=== PATIENT | male | born 1955 | race Caucasian/White ===

== ENCOUNTER → 2020-12-01 00:12 | Outpatient (CLI) | payer MEDICARE, SELFPAY ==
[2020-12-01 18:59] LABS: SARS-CoV-2 RNA PCR Negative
== END ==
PROVIDERS: PCP Family Medicine; Visit Provider Internal Medicine Gastroenterology
DX: Z01.812 Encounter for preprocedural laboratory examination (principal); Z20.822 Contact with and (suspected) exposure to COVID-19
CPT/HCPCS: C9803; U0003; U0005

== ENCOUNTER 2020-12-04 01:00 | Day surgery (SDC) | payer MEDICARE, SELFPAY ==
[2020-11-20 14:27] VITALS: BMI 34.4
[2020-12-04 08:31] VITALS: BP 141/80; PULSE 71; RESP 16; TEMP 36.3; O2SAT 98; BMI 35.4
[2020-12-04] MEDS: LACTATED RINGERS 1,000 ML 150 ML IV CONT (08:40)
--- NOTE | 2020-12-04 08:45 | PM.HPGS ---
History of Present Illness History of Present Illness Consent: Risks, benefits, and alternatives have been discussed and questions answered. Patient agrees to proceed with procedure. Chief complaint: neoplasm screening Narrative: Richard Clark is a 65 year old male referred for colon cancer screening Review of Systems Review of Systems: All systems reviewed & are unremarkable except as noted in HPI and below [facility] Social History Social History Living arrangements: with family Gender identity (if verbalized by the patient): Male Spiritual care concerns: No Meds Home Medications and Allergies Home Medications Medication Instructions Recorded Confirmed Type carvedilol 6.25 mg PO BID 11/20/20 12/04/20 History febuxostat 40 mg PO DAILY 11/20/20 12/04/20 History levothyroxine 37.5 mcg PO DAILY 11/20/20 12/04/20 History lisinopril-hydrochlorothiazide 10 - 12.5 tablet PO DAILY 11/20/20 12/04/20 History Allergies Allergy/AdvReac Type Severity Reaction Status Date / Time apricot Allergy Unknown HIVES Verified 12/04/20 08:30 No Known Drug Allergies Allergy Unknown NONE Verified 12/04/20 08:30 Vital Signs Vital Signs - 24 hr 12/04/20 08:31 Temperature 36.3 C L Pulse Rate 71 Respiratory Rate 16 Blood Pressure 141/80 H Pulse Oximetry 98 Exam Resp: Auscultation: clear to auscultation bilaterally Cardio: Rate: regular rate Rhythm: regular rhythm GI: GI Palp: Yes Soft to palpation and No Tenderness to palpation present (GI) Assessment and Plan Assessment and plan (1) Colon cancer screening: Code(s): Z12.11 - Encounter for screening for malignant neoplasm of colon Status: Acute Assessment and Plan: Colonoscopy with possible biopsy or polypectomy or cautery or injection of substances.
--- NOTE | 2020-12-04 09:18 | WPDANESEPPF ---
Anes - Initial Pre Proc Eval Procedure: Operation Date: 12/04/20 09:30 Proposed Procedures p Screening Colonoscopy - Chito Botello MD Date/Time: 12/04/20 09:18 Surgeon: Chito Botello MD Pre Op Diagnosis: neoplasm screening Patient Data Age: 65 Gender: M Height: 5 ft 10 in Weight: 111.8 kg Last Vital Signs Temp 97.3 F L 12/04/20 08:31 Pulse 71 12/04/20 08:31 Resp 16 12/04/20 08:31 BP 141/80 H 12/04/20 08:31 Pulse Ox 98 12/04/20 08:31 Allergies Allergy/AdvReac Type Severity Reaction Status Date / Time apricot Allergy Unknown HIVES Verified 12/04/20 08:30 No Known Drug Allergies Allergy Unknown NONE Verified 12/04/20 08:30 Home Medications Medication Instructions Recorded Confirmed Type carvedilol 6.25 mg PO BID 11/20/20 12/04/20 History febuxostat 40 mg PO DAILY 11/20/20 12/04/20 History levothyroxine 37.5 mcg PO DAILY 11/20/20 12/04/20 History lisinopril-hydrochlorothiazide 10 - 12.5 tablet PO DAILY 11/20/20 12/04/20 History Patient hx anesthesia problems: none Family hx anesthesia problems: none [facility] Past Medical History Medical History (Updated 12/04/20 @ 09:19 by Devendra Lewis MD) Hypertension Hypothyroid Social History Social History Living arrangements: with family Gender identity (if verbalized by the patient): Male Spiritual care concerns: No Anes - Eval Final PreProcedure Day of Procedure 12/04/20 09:18 Patient weight: overweight Heart: regular rate and rhythm Lungs: clear to auscultation Airway: Mallampati scale class II Neurological: alert and oriented Last oral intake: >/= 8 hours ASA classification: II Emergent: no Anesthetic plan: proceed Anesthesia type and monitoring: general GIVS and standard monitoring Informed Consent: The patient's anesthetic plan and its attendant risks and benefits were discussed with the patient/family/POA. Questions were solicited and answers provided to the satisfaction of the patient/family/POA.
[2020-12-04 09:40] VITALS: BP 104/66; PULSE 65; RESP 16; O2SAT 94
[2020-12-04 09:50] VITALS: BP 117/68; PULSE 59; RESP 16; O2SAT 95
[2020-12-04 10:08] VITALS: BP 139/92; PULSE 62; RESP 14; O2SAT 98
== END 2020-12-04 10:34 | disposition home or self-care (01) ==
PROVIDERS: PCP Family Medicine; Visit Provider Internal Medicine Gastroenterology
PROC: 0DJD8ZZ Inspection of Lower Intestinal Tract, Via Natural or Artificial Opening Endoscopic (ICD-10-PCS; CPT 45378; principal; 2020-12-04 09:30)
DX: Z12.11 Encounter for screening for malignant neoplasm of colon (principal); K57.30 Diverticulosis of large intestine without perforation or abscess without bleeding
CPT/HCPCS: G0121; C9803; J2704; J7120; U0003; U0005

== ENCOUNTER 2021-10-29 09:31 | Outpatient (CLI) | payer MEDICARE, SELFPAY ==
--- NOTE | ~2021-10-29 | XR_ITS ---
EXAMINATION: XR hip RT min 2V DATE: 10/29/2021 10:10 INDICATION: Right hip pain. TECHNIQUE: 2 views of right hip were obtained. COMPARISON: CT abdomen and pelvis 08/22/2012 FINDINGS: Bone alignment is normal. No fracture. There is a mixed lytic and sclerotic pattern of supe rior right femoral head with collapse of the articular surface. There is severe right hip osteoarthri tis. IMPRESSION: 1. 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 Reviewed, dictated and finalized at location E. [employer]
== END 2021-10-29 09:32 | disposition home or self-care (01) ==
LOC: ANHIMG 09:49
PROVIDERS: PCP Family Medicine
DX: M87.851 Other osteonecrosis, right femur (principal)
CPT/HCPCS: 73502

== ENCOUNTER 2022-05-21 09:45 | Outpatient (CLI) | payer MEDICARE, SELFPAY ==
--- NOTE | ~2022-05-21 | CT_ITS ---
EXAMINATION: CT hip RT wo con DATE: 05/21/2022 10:09 INDICATION: Right hip osteoarthritis. TECHNIQUE: High resolution computed tomography (CT) of the right hip was performed without intravenou s contrast. Additional sagittal and coronal reconstructions were performed. Automated exposure contro l and iterative reconstruction technique were employed. The dose-length product was 442.49 mGy-cm. COMPARISON: None FINDINGS: Bone alignment is normal. No fracture. Large lytic lesion with thin sclerotic margins at the cephalad aspect of the right humeral head positioned centrally within the region of likely osteonecrosis roun ded inferiorly by curvilinear sclerosis. There is collapse of the overlying articular surface involvi ng a region measuring 4 cm AP and 2.5 cm medial to lateral. There is up to 3 mm maximal step off at t he margins of the depressed articular cortex. There is moderate severity cephalad predominant nonunif orm joint space narrowing at the right hip with moderate size marginal osteophytes about the femoral head and small marginal osteophytes and mild cystic changes along the rim of the right acetabulum. No right hip joint effusion. Surrounding soft tissues are unremarkable. No evident pathologically enlar ged right pelvic or inguinal lymphadenopathy. IMPRESSION: 1. Moderate secondary osteoarthritis at the right hip with chronic osteonecrosis at the right femoral head with collapse of a significant portion of the cephalad articular cortex. Reviewed, dictated and finalized at location A. IMPRESSION: 1. Moderate secondary osteoarthritis at the right hip with chronic osteonecrosi s at the right femoral head with collapse of a significant portion of the cepha lad articular cortex.
== END 2022-05-21 09:46 | disposition home or self-care (01) ==
PROVIDERS: PCP Family Medicine; Visit Provider Nurse Practitioner Adult Health
DX: M16.11 Unilateral primary osteoarthritis, right hip (principal)
CPT/HCPCS: 73700

== ENCOUNTER 2022-12-11 07:51 | Outpatient (CLI) | payer MEDICARE, SELFPAY ==
--- NOTE | 2022-12-11 09:13 | ECG_ITS ---
Measurements Intervals [place] Rate: 63 P: CO: 0 QRS: -65 QRSD: 102 T: 27 QT: 401 QTc: 412 Interpretive Statements SINUS RHYTHM BORDERLINE AV CONDUCTION DELAY LEFT ANTERIOR FASCICULAR BLOCK BASELINE ARTIFACT- I, II, III, AVL, V3-V6 ABNORMAL ECG NO PREVIOUS ECG AVAILABLE FOR COMPARISON Electronically Signed On 12-11-2022 12:00:06 CDT by Roberto Dorman D.O.
[2022-12-11 09:40] LABS: Appearance Urine Clear (Clear); Bilirubin Urine Negative (Negative); Blood Urine Negative (Negative); Color Urine Yellow (Yellow); Glucose Urine UA Negative (Negative); Ketones Urine Negative (Negative); Leukocyte Esterase Ur Negative LEU/UL (Negative); Nitrate Urine Negative (Negative); Protein Urine Negative (Negative); Specific Grav Ur 1.011 (1.001-1.035); Urobilinogen Urine 0.2 mg/dL (<2.0); pH Urine 5.5 (5.0-9.0)
[2022-12-11 09:50] LABS: Urine Cotinine NEGATIVE
[2022-12-11 09:51] LABS: Add Urine Microscopic? NO
[2022-12-11 09:54] LABS: INR 1.1; Prothrombin Time 13.4 Seconds (11.1-14.7)
[2022-12-11 09:55] LABS: Partial Thromboplastin Time 34.1 SECONDS (22.3-36.8)
== END 2022-12-11 07:52 | disposition home or self-care (01) ==
LOC: ANHSURGERY 07:55
PROVIDERS: PCP Family Medicine; Visit Provider Orthopaedic Surgery
DX: M16.11 Unilateral primary osteoarthritis, right hip (principal); Z01.818 Encounter for other preprocedural examination; I45.9 Conduction disorder, unspecified; I44.4 Left anterior fascicular block
CPT/HCPCS: 80307; 81003; 85610; 85730; 87081; 93005

== ENCOUNTER 2022-12-26 14:02 | Observation (INO) | payer MEDICARE, SELFPAY ==
[2022-12-11 08:00] VITALS: BMI 35.3
--- NOTE | 2022-12-11 08:35 | PC.NURSE ---
Report to the Outpatient Waiting Room, entrance under the green pavilion located off [facility], at time _0900 on date __12/25/22 . Planned Procedure Time: __1100 . Time changes happen often and if your time is changed the preop area will call you the afternoon before. - You and your visitor will be asked to self-screen and do not enter if you have any COVID symptoms. - Only one visitor is requested with a max of two and NO children visitors are allowed at this time. - The patient visitor may be requested to leave or wait in car when not with patient due to distancing restrictions. - A mask is optional within the hospital at this time. Patients may have clear liquids (water, carbonated beverages, clear teas, apple juice) until 3 hours prior to surgery with a maximum of 20 ounces. - No food from midnight until time of surgery - Infants may have breast milk until 4 hours before surgery, formula 6 hours prior to surgery. - Children will be allowed to drink immediately following surgery. If applicable, please bring a bottle or sippy cup to assist with drinking. Juice, water, soda, and popsicles are readily available. For infants on formula, please bring formula the day of surgery. Pacifiers are allowed. Take the following medications with a SIP of water the morning of surgery: ___CARVEDILOL,LEVOTHYROXINE, DO NOT STOP ANY OF YOUR OTHER PRESCRIPTION MEDICATIONS PRIOR TO SURGERY ?EXCEPT THE FOLLOWING Medications to discontinue per physician _ASPIRIN AND ALEVE PER DR NUNEZ. ALL VITAMINS/SUPPLEMENTS 3 DAYS PRE OP. LAST DOSE 12/21/22___ Please no make-up, nail serbian, hairspray, perfume, deodorant, or body powder the day of surgery. No jewelry (including any body piercings) or valuables the day of surgery, leave them at home. Please take a shower or bath the night before, or the morning of, surgery with an antibacterial soap. Wear comfortable, loose fitting clothing. Children are encouraged to wear pajamas. - Jewelry must be removed prior to entering the operating room. Rings and piercings that are not removed may be cut off. - The hospital will not accept responsibility for valuables. - Please leave all valuables, including medications, at home the day of surgery. If you are going home after surgery, a licensed regional otr company driver must drive you home. - NO public transportation without another adult if you receive anesthesia. - We recommend that an adult stay with you for 24 hours following discharge. - We also recommend that you do not drive, make important decision, drink alcoholic beverages, or take any drugs that were not prescribed by your health care provider for at least 24 hours after your discharge time. Follow any additional instructions given to you from your surgeon. If you or anyone in your household have experienced Covid symptoms in the past week, please notify your surgeon or the nurse liaison at the phone number below for possible testing. VERBAL AND WRITTEN instructions given to _PATIENT and asked if any additional questions and then verbalized understanding. Patient advised to call surgeon office or pre surgery nurse liaison [phone] if any additional questions.
[2022-12-11 08:58] VITALS: BP 137/79; PULSE 60; RESP 18; TEMP 36.6; O2SAT 97
--- NOTE | 2022-12-24 13:08 | WPDANESEPPF ---
Anes - Initial Pre Proc Eval Procedure: Operation Date: 12/25/22 11:00 Proposed Procedures p Right Total Hip Arthroplasty - Edis Sahni MD Date/Time: 12/24/22 13:08 Surgeon: Edis Sahni MD Pre Op Diagnosis: right hip djd Patient Data Age: 67 Gender: M Height: 1.78 m Weight: 111.7 kg Last Vital Signs Temp 36.6 C 12/11/22 08:58 Pulse 60 12/11/22 08:58 Resp 18 12/11/22 08:58 BP 137/79 12/11/22 08:58 Pulse Ox 97 12/11/22 08:58 O2 Del Method Room Air 12/11/22 08:58 Allergies Allergy/AdvReac Type Severity Reaction Status Date / Time apricot Allergy Unknown HIVES Verified 12/25/22 09:17 Home Medications Medication Instructions Recorded Confirmed Type carvedilol 6.25 mg tablet 6.25 mg PO BID 11/20/20 12/25/22 History lisinopril 10 10 - 12.5 tablet PO DAILY 11/20/20 12/25/22 History mg-hydrochlorothiazide 12.5 mg tablet ascorbic acid (vitamin C) 1,000 mg 1 g PO DAILY 09/30/22 12/25/22 History capsule cholecalciferol (vitamin D3) 125 125 mcg PO DAILY 09/30/22 12/25/22 History mcg (5,000 unit) capsule omega-3 fatty acids 1,000 mg 1,000 mg PO DAILY 09/30/22 12/25/22 History capsule allopurinol 100 mg tablet 100 mg PO DAILY 12/11/22 12/25/22 History aspirin 81 mg tablet 81 mg PO DAILY 12/11/22 12/25/22 History chlorhexidine gluconate 4 % 1 applic topical ONCE #237 mL 12/11/22 12/25/22 Rx topical liquid (Hibiclens) ferrous sulfate 27 mg iron tablet 27 mg PO QMWF 12/11/22 12/25/22 History glucosamine 750 vg-yeooawylxxy-bpt 1 tablet PO BID 12/11/22 12/25/22 History no1 644 mg-C 30 mg-[place] 1 mg tablet (Osteo Bi-Flex Triple Strength) levothyroxine 50 mcg tablet 50 mcg PO DAILY 12/11/22 12/25/22 History multivit,Ca,min-iron 8 mg-folic 1 tablet PO DAILY 12/11/22 12/25/22 History acid 200 mcg-lycopene 600 mcg tablet (Centrum Men) naproxen sodium 220 mg capsule 220 mg PO Q12H PRN Pain 12/11/22 12/25/22 History (Aleve) prasterone (dhea) 25 mg tablet 25 mg PO DAILY 12/11/22 12/25/22 History (DHEA) ECG: Date of Service: 12/11/22 Procedure(s): CA 12 lead EKG Accession Number(s): [id number] cc: ~ ? Measurements Intervals? [place]? Rate: ? 63 ? P:? MT: ? 0? QRS:? -65 QRSD: ? 102? T:? 27 QT: ? 401? QTc:? 412? Interpretive Statements SINUS RHYTHM BORDERLINE AV CONDUCTION DELAY LEFT ANTERIOR FASCICULAR BLOCK BASELINE ARTIFACT- I, II, III, AVL, V3-V6 ABNORMAL ECG NO PREVIOUS ECG AVAILABLE FOR COMPARISON Electronically Signed On 12-11-2022 12:00:06 CDT by Roberto Dorman D.O. Patient hx anesthesia problems: none Family hx anesthesia problems: none Results Review: All pre-operative results and documents have been reviewed as part of the pre-operative evaluation. [facility] Past Medical History Medical History (Updated 12/13/22 @ 10:59 by JORGE LUIS Cross) HTN (hypertension) Hypertension Hypothyroid Low testosterone Social History Social History Smoking status: Never smoker Additional smoking assessment comments: DENIES ANY FORM OF TOBACCO USE Living arrangements: with family Gender identity (if verbalized by the patient): Male Spiritual care concerns: No Anes - Eval Final PreProcedure Day of Procedure 12/24/22 13:08 Patient weight: obese Heart: regular rate and rhythm Lungs: clear to auscultation Airway: Mallampati scale class II Neurological: alert and oriented Last oral intake: >/= 8 hours ASA classification: III Emergent: no Anesthetic plan: proceed Anesthesia type and monitoring: general ETT and standard monitoring Results Review: All pre-operative results and docum
[2022-12-25] VITALS (14 sets, daily range): BP systolic 109–132; BP diastolic 63–71; PULSE 59–70; RESP 12–18; TEMP 36.1–36.7; O2SAT 93–100
--- NOTE | 2022-12-25 07:15 | WPDHPUPDATE1 ---
History and Physical Update Update Date/Time: 12/25/22 07:15 History and Physical has been reviewed, including an updated exam of the patient. There are NO changes in the patient's condition. Risks, benefits, and alternatives have been discussed and questions answered. Patient agrees to proceed with procedure.
[2022-12-25] MEDS: ACETAMINOPHEN 500 MG TABLET 1000 MG PO (09:26)
[2022-12-25] MEDS: LACTATED RINGERS 1,000 ML 30 ML IV CONT ×2 (10:30→16:35)
[2022-12-25] MEDS: TRANEXAMIC ACID 1,000MG/ISO100 1,000 MG/100 ML BAG 200 MG IVPB (10:35)
--- NOTE | 2022-12-25 11:09 | SUR.PREOP ---
1109- UPDATED PT THAT DR. NUNEZ IS RUNNING ABOUT A HOUR BEHIND.
[2022-12-25] MEDS: ceFAZolin 2 GM/D5W 50 ML 2 GM/50 ML BAG IVPB ×2 (13:09→20:16)
[2022-12-25] MEDS: TRANEXAMIC ACID 1,000 MG/10 ML AMPUL 1000 MG IV PUSH (15:37)
--- NOTE | 2022-12-25 16:38 | W.PM.PROC2 ---
Procedure Note - Detailed Date of Procedure 12/25/22 Pre-op Diagnosis right hip djd Post-op Diagnosis Same Procedure Performed R JAYME Surgeon Edis Sahni MD Anesthesia General Description of Procedure THE PATIENT WAS TAKEN TO THE OPERATING ROOM IN STABLE CONDITION AND WAS PLACED IN THE LATERAL DECUBITUS AND THE RIGHT LOWER EXTREMITY WAS PREPPED AND DRAPED IN THE STERILE FASHION. INCISION WAS MADE IN THE POSTERIOR LATERAL SIDE OF THE HIP, DOWN TO THE FASCIA LAYER. THE FASCIA WAS INCISED. THE HIP WAS EXPOSED. THE SHORT EXTERNAL ROTATORS WERE EXPOSED. THE SCIATIC NERVE WAS IDENTIFIED. INCISION WAS MADE THROUGH THE SHORT EXTERNAL ROTATORS AND THE CAPSULE OF THE HIP JOINT. THE HIP WAS DISLOCATED. AN OSTEOTOMY WAS MADE TO THE FEMORAL NECK ABOUT 1 CM PROXIMAL TO THE LESSER TROCHANTER. THE ACETABULUM WAS EXPOSED. THERE WAS SEVERE DJD SEEN. BEGINNING WITH A 47 REAMER THE ACETABULUM WAS REAMED TO 53 MM. A 53 MM TRIAL WAS PLACED IN 35 DEG OF ABDUCTION AND ANTEVERSION WAS IN ALIGNMENT WITH THE TRANS ACETABULAR LIGAMENT. THE FIT WAS EXCELLENT. THE TRIAL WAS REMOVED. A 54 MM BIOMET G7 COMPONENT WAS THEN TAPPED IN TO PLACE IN 35 DEG OF ABDUCTION AND ANTEVERSION IN ALIGNMENT WITH THE TRANSVERSE ACETABULAR LIGAMENT. THE FIT WAS EXCELLENT. THE ACETABULAR LINER WAS PLACED AND CHECKED FOR STABILITY. NEXT THE FEMUR WAS PREPARED WITH INITIAL CANAL FINDER THEN SEQUENTIAL BROACHING WITH A TAPERLOC HIP SYSTEM, UNTIL A 12 BROACH FIT WELL IN 15 OF ANTEVERSION. A +6 HIGH OFFSET NECK WITH 36 MM HEAD TRIAL WAS PLACED. THE SHUCK TEST WAS EXCELLENT AND THE STABILITY IN FLEXION AND ROTATION WAS EXCELLENT. LEG LENGTHS WERE GROSSLY EQUAL. TRIALS WERE REMOVED. A BIOMET TAPERLOC 12 STEM WAS PLACED WITH A HIGH OFFSET NECK. THE FIT WAS EXCELLENT IN 15 DEG OF ANTEVERSION. A +6 CERAMIC 36 MM FEMORAL HEAD WAS PLACED. THE HIP WAS TRIALED AND THE STABILITY WAS EXCELLENT WERE THE LEG LENGTHS AND THE SHUCK TEST. THE WOUND WAS IRRIGATED WITH STERILE BETADINE AND WATER FOR 3 MIN. THEN WASHED AGAIN. THE SCIATIC NERVE WAS IDENTIFIED AGAIN. THE CAPSULE AND THE EXTERNAL ROTATORS WERE APPROXIMATED WITH NUMBER 1 VICRYL. THE FASCIA WITH No 2 QUIL AND THE SUB CUTANEOUS LAYER WITH 2-0 ABSORBABLE SUTURE AND A RUNNING 3-0 SUBCUTICULAR STITCH FOR THE SKIN. DERMABOND WAS PLACED AND STERILE DRESSING WAS APPLIED. PATIENT WAS PLACED BACK ON TO THE SUPINE POSITION AND WAS EXTUBATED Estimated Blood Loss -150.0 Complications No immediate complications Condition Stable Disposition PACU
[2022-12-25] MEDS: fentaNYL CITRATE INJ (*CRX) 100 MCG/2 ML VIAL 25 MCG IV PUSH ×4 (16:45→17:51)
--- NOTE | 2022-12-25 18:00 | PC.NURSE ---
This patient, Richard Clark, was admitted to 2 Medical Room 242-. Patient/family oriented to hospital policies and general routines including ID bracelet, bed and alarms, visiting hours, pain management, procedures, bathroom and other care routines, personal items, smoking policy, room service/diet, and visiting hours. Information on how to activate the Rapid Response Team has been discussed. Patient/Family are encouraged to report perceived risks to care and to ask questions if they do not understand what they are told or what they should do.
[2022-12-25] MEDS: DEXTROSE 5%/0.45% SOD CHL 1,000 ML 80 ML IV CONT (18:34)
[2022-12-25] MEDS: KETOROLAC 15 MG/ML VIAL (*BKC) IV PUSH (20:15)
[2022-12-25] MEDS: carvediloL 6.25 MG TABLET PO (20:15)
[2022-12-25] MEDS: SENNA/DOCUSATE SODIUM TABLET 2 TAB PO (20:16)
[2022-12-25] MEDS: FAMOTIDINE 20 MG TABLET PO (20:16)
[2022-12-26] VITALS (20 sets, daily range): BP systolic 99–135; BP diastolic 52–72; PULSE 72–98; RESP 14–16; TEMP 36.4–37.1; O2SAT 96–100
--- NOTE | ~2022-12-26 | XR_ITS ---
EXAM: XR hip RT 1V DATE: 12/25/2022 16:52 HISTORY: RT TOTAL HIP, POST- OP . COMPARISON: 09/26/2022. FINDINGS: Right total hip arthroplasty, in good position. No hardware fracture or abnormal perihilar hardware lucency. Normal mineralization. No fracture or dislocation. No lytic or blastic lesion. Join t spaces and physes are maintained. No erosion or periosteal change. Postsurgical changes in the soft tissues. IMPRESSION: Expected postsurgical changes, with no radiographic evidence of procedure or hardware rel ated complication. Reviewed, dictated and finalized at location K. IMPRESSION: Expected postsurgical changes, with no radiographic evidence of pro cedure or hardware related complication.
--- NOTE | ~2022-12-26 | US_ITS ---
EXAMINATION: US carotid duplex BI DATE: 12/27/2022 08:36 INDICATION: Syncope TECHNIQUE: Grayscale, color Doppler, and pulsed Doppler images of the cervical carotid arteries were obtained. The degree of vessel stenosis is placed in one of the following categories: normal, <50%, 5 0-69%, >=70% but less than near-occlusion, near-occlusion, or total occlusion. Note that percent sten osis relative to normal distal artery lumen diameter is indirectly measured from velocity measurement s as described by Garry, et al. Radiology 2003; 229:340-346. COMPARISON: None. FINDINGS: RIGHT: The right common carotid artery (CCA) peak systolic velocity (PSV) is 128 cm/s. The right internal ca rotid artery (ICA) PSV is 106 cm/s. The right ICA end-diastolic velocity (EDV) is 34 cm/s. The right ICA/CCA PSV ratio is 0.8. Grayscale and color Doppler images yield an estimate of <50% diameter reduc tion from plaque in the ICA. The external carotid artery (ECA) PSV is 117 cm/s. There is antegrade fl ow in the right vertebral artery. LEFT: The left CCA PSV is 173 cm/s. The left ICA PSV is 103 cm/s. The left ICA EDV is 33 cm/s. The left ICA /CCA PSV ratio is 0.6. Grayscale and color Doppler images yield an estimate of <50% diameter reductio n from plaque in the ICA. The ECA PSV is 138 cm/s. There is antegrade flow in the left vertebral devendra ry. IMPRESSION: 1. <50% stenosis in the right internal carotid artery. 2. <50% stenosis in the left internal carotid artery. Reviewed, dictated and finalized at location A.
--- NOTE | 2022-12-26 00:10 | PC.NURSE ---
Vitals obtained, assisted to the edge of the bed into sitting position, pt complains of dizziness, sat on the edge of the bed for a few minutes, pt reports dizziness is better, pt then stands up with walker in front, takes 2 small steps forward and then starts to lean back, able to sit him down on the edge of the bed, pt states I'm dizzy and his head slumps forward, he becomes verbally unresponsive, laid him onto his back, sternal rub with no response, agonal breathing, blueish colored face, rapid response team called at 0016, unable to palpate carotid pulse, agonal breathing continues, code blue called @ 0017, able to doppler femoral pulse, 0019 takes a deep breath and wakes up startled, vitals obtained and WNL, Kaitlyn OSPINA notified of events.
[2022-12-26 00:36] LABS: Hemoglobin 15.1 g/dL (14.0-18.0); Mean Corpuscular HGB Conc 35.1 g/dl (32-36); Mean Corpuscular Volume 85.5 fl (80-100); Mean Platelet Volume 9.6 fl (7.4-10.4); Platelet Count Result 295 k/mm3 (150-375); Red Blood Count 5.03 M/mm3 (4.6-6.20); Red Cell Distribution Width 12.8 % (11.5-14.5); White Blood Count 21.6 K/mm3 (4.5-10.0)
[2022-12-26] MEDS: SODIUM CHLORIDE 0.9% IV 1,000 ML 999 ML IV CONT (00:36)
[2022-12-26] MEDS: SODIUM CHLORIDE NASAL GEL 14.1 GM 1 APPLIC NASAL ×2 (00:49→19:43)
[2022-12-26 01:03] LABS: Anion Gap 11 mmol/L (8-16); Blood Urea Nitrogen 28 mg/dL (9-20); Calcium 8.4 mg/dL (8.4-10.2); Carbon Dioxide 22 mmol/L (22-30); Chloride 101 mmol/L (98-107); Estimated CRCL calculation 75 ml/min; Estimated Glomerular Filt Rate > 60; Glucose 174 mg/dL (65-110); Potassium 4.3 mmol/L (3.4-5.0); Sodium 134 mmol/L (137-145)
[2022-12-26] MEDS: KETOROLAC 15 MG/ML VIAL (*BKC) IV PUSH ×4 (02:35→19:40)
[2022-12-26] MEDS: ceFAZolin 2 GM/D5W 50 ML 2 GM/50 ML BAG IVPB ×2 (04:36→13:03)
[2022-12-26] MEDS: BENZOCAINE/MENTHOL (*BKC) 18 EA LOZENGE 1 LOZENGE PO (04:37)
[2022-12-26 05:27] LABS: Basophils Percent Auto 0.1 % (0.2-1.2); Hematocrit 39.2 % (42.0-52.0); Hemoglobin 13.3 g/dL (14.0-18.0); Immature Granulocyte Absolute 0.08 K/mm3 (0.00-0.031); Immature Granulocyte Percent A 0.6 % (0-0.5); Lymphocytes Absolute Auto 0.98 K/mm3 (0.9-3.2); Lymphocytes Percent Auto 7.1 % (18.3-44.2); Mean Corpuscular HGB Conc 33.9 g/dl (32-36); Mean Corpuscular Hemoglobin 29.8 pg (26-34); Mean Corpuscular Volume 87.9 fl (80-100); Mean Platelet Volume 9.9 fl (7.4-10.4); Monocytes Absolute Auto 1.1 K/mm3 (0.1-0.6); Monocytes Percent Auto 7.9 % (2.6-8.5); Neutrophils Absolute Auto 11.7 K/mm3 (1.3-6.7); Neutrophils Percent Auto 84.3 % (45.5-73.1); Platelet Count Result 236 k/mm3 (150-375); Red Blood Count 4.46 M/mm3 (4.6-6.20); Red Cell Distribution Width 12.8 % (11.5-14.5); White Blood Count 13.8 K/mm3 (4.5-10.0)
[2022-12-26 05:43] LABS: Anion Gap 8 mmol/L (8-16); Blood Urea Nitrogen 29 mg/dL (9-20); Calcium 8.1 mg/dL (8.4-10.2); Carbon Dioxide 25 mmol/L (22-30); Chloride 102 mmol/L (98-107); Estimated CRCL calculation 75 ml/min; Estimated Glomerular Filt Rate > 60; Glucose 143 mg/dL (65-110); Potassium 4.7 mmol/L (3.4-5.0); Sodium 135 mmol/L (137-145)
[2022-12-26] MEDS: LEVOTHYROXINE SODIUM 50 MCG TABLET PO (06:01)
[2022-12-26] MEDS: HYDROcodone/acetaminophen (*CRX) 7.5-325 MG TABLET 1 TAB PO (06:01)
[2022-12-26] MEDS: allopurinoL 100 MG TABLET PO (08:44)
[2022-12-26] MEDS: ASCORBIC ACID 500 MG TABLET 1000 MG PO (08:44)
[2022-12-26] MEDS: ASPIRIN 325 MG ENTERIC TABLET PO ×2 (08:45→19:43)
[2022-12-26] MEDS: SENNA/DOCUSATE SODIUM TABLET 2 TAB PO ×2 (08:46→16:49)
[2022-12-26] MEDS: CHOLECALCIFEROL 1,000 UNITS TABLET 5000 UNITS PO (08:46)
[2022-12-26] MEDS: FAMOTIDINE 20 MG TABLET PO ×2 (08:47→19:43)
[2022-12-26] MEDS: polyethylene glycoL 3350 17 GM POWD.PACK PO (08:48)
--- NOTE | 2022-12-26 09:34 | WPDANESPN ---
Anes - Prog Note Post-Op Date/Time: 12/26/22 09:34 Cardiovascular status: normal Respiratory status: normal Airway patency: baseline Mental status: baseline Post-Op hydration status: normal Vital Signs: Last Vital Signs Temp 36.8 C 12/26/22 05:19 Pulse 95 12/26/22 08:57 Resp 16 12/26/22 05:19 BP 99/72 L 12/26/22 08:57 Pulse Ox 100 12/26/22 05:19 O2 Del Method Room Air 12/26/22 00:16 O2 Flow Rate 3 12/25/22 20:00 Pain Score (VAS): 11/29 I/O: Intake & Output 12/25/22 12/26/22 12/26/22 23:59 07:59 15:59 Intake Total 850 2350 Output Total 200 Balance 850 2150 Laboratory Tests 12/26/22 04:52 12/26/22 04:52 12/25/22 12/26/22 12/26/22 10:33 00:30 00:30 WBC 21.6 H RBC 5.03 Hgb 15.1 Hct 43.0 MCV 85.5 MCH 30.0 MCHC 35.1 RDW 12.8 Plt Count 295 MPV 9.6 Immature Gran % (Auto) Neut % (Auto) Lymph % (Auto) Boyd % (Auto) Eos % (Auto) Baso % (Auto) Lymph # (Auto) Boyd # (Auto) Eos # (Auto) Baso # (Auto) Abs Immat Gran (auto) Absolute Neuts (auto) Absolute Nucleated RBC Nucleated RBC % Sodium 134 L Potassium 4.3 Chloride 101 Carbon Dioxide 22 Anion Gap 11 BUN 28 H Creatinine 1.00 Estim Creat Clear Calc 75 Estimated GFR > 60 Glucose 174 H Calcium 8.4 Blood Type O Negative Antibody Screen Negative 12/26/22 12/26/22 04:52 04:52 WBC 13.8 H RBC 4.46 L Hgb 13.3 L Hct 39.2 L MCV 87.9 MCH 29.8 MCHC 33.9 RDW 12.8 Plt Count 236 MPV 9.9 Immature Gran % (Auto) 0.6 H Neut % (Auto) 84.3 H Lymph % (Auto) 7.1 L Boyd % (Auto) 7.9 Eos % (Auto) 0.0 Baso % (Auto) 0.1 L Lymph # (Auto) 0.98 Boyd # (Auto) 1.1 H Eos # (Auto) 0.0 Baso # (Auto) 0.0 Abs Immat Gran (auto) 0.08 H Absolute Neuts (auto) 11.7 H Absolute Nucleated RBC 0.0 Nucleated RBC % 0.0 Sodium 135 L Potassium 4.7 Chloride 102 Carbon Dioxide 25 Anion Gap 8 BUN 29 H Creatinine 1.00 Estim Creat Clear Calc 75 Estimated GFR > 60 Glucose 143 H Calcium 8.1 L Blood Type Antibody Screen Post-procedural complaints: none Patient Feedback: Patient satisfied with anesthetic care.
[2022-12-26] MEDS: carvediloL 6.25 MG TABLET PO ×2 (11:56→19:43)
[2022-12-26] MEDS: hydroCHLOROthiazide 12.5 MG CAPSULE PO (11:57)
--- NOTE | 2022-12-26 12:17 | PM.PNORT ---
Progress Note: A&P Assessment and Plan (1) S/P total hip arthroplasty: Code(s): Z96.649 - Presence of unspecified artificial hip joint Status: Acute Assessment and Plan: POD #1: Right JAYME Continue PT/OT. WBAT. Walker. HIGH FALL RISK. Continue pain control. Ice hip. Protect skin. DVT prophylaxis with aspirin. SCDs. Incentive Spirometry Use reviewed. Monitor Dressing. Change prior to discharge. Bowel Regimen. Dispo: Home with Home Health pending progress with PT/OT and improvement in postoperative medical status. (2) Postoperative urinary retention: Code(s): N99.89 - Other postprocedural complications and disorders of genitourinary system; R33.8 - Other retention of urine Status: Acute Assessment and Plan: Patient reports difficulty with urinary retention overnight and then again today. Recommended bladder scan at this time. Nursing to update us with bladder scan results to determine straight catheterization vs. saldaña placement. (3) Postoperative hypotension: Code(s): I95.81 - Postprocedural hypotension Status: Acute Assessment and Plan: Patient had a rapid response called shortly after midnight. Patient had stood up for the first time post op and suffered from an episode of unresponsiveness. His BP remained stable during event. No fall per report. He quickly regained consciousness. Rapid Response team treated patient. HgB stable at 13.1 today. Some hypotension this AM. Dr. Sahni instructed nursing staff to hold patient's Lisinopril today. He has not yet participated in PT due to the incident. Okay to resume PT at this time. May consult medicine team to assist with medical care. (4) Nausea: Code(s): R11.0 - Nausea Status: Acute Assessment and Plan: Postoperative nausea. Decreased appetite. Zofran PRN. Subjective Subjective Date/Time Seen: 12/26/22 12:17 Post Op day: 1 Interval history: POD #1: Right JAYME Patient with complaints of nausea, decreased appetite. Unable to urinate this AM. Syncopal episode over night. Has not yet worked with PT. Review of Systems Review of Systems: All systems reviewed & are unremarkable except as noted in HPI and below Constitutional: Constitutional: Reports as per HPI Gastrointestinal: Gastrointestinal: Reports nausea Genitourinary: Genitourinary: Reports urinary hesitancy Musculoskeletal: Musculoskeletal: Reports as per HPI Exam Const: General: no acute distress and uncomfortable Resp: Effort & Inspection: normal respiratory effort Cardio: Rate: regular rate Rhythm: regular rhythm GI: Inspection: non-distended GI Palp: Yes Soft to palpation, No Tenderness to palpation present (GI) and No Guarding due to palpation present (GI) Skin: General skin exam: normal color Other: Incision right hip c/d/i. Surrounding tissue without redness/warmth. Mild swelling consistent with recent surgery. No drainage. Neuro: Cognition (Neuro): normal cognition Speech: normal speech Extrem: Right lower extremity: normal to inspection, normal capillary refill, hip/thigh Details: tenderness Location: of the hip (Thigh soft ) Location: laterally and anteriorly, swelling Location: at the hip, abnormal ROM (limited consistent with recent surgery ) Details: pain with active ROM during and pain with passive ROM during and other (Incision c/d/i. ); no deformity and no unusual warmth, knee Details: normal to inspection; no tenderness and no swelling, lower leg (Negative Adrian's Sign ) Details: normal to inspection and no edema; no tenderness, ankle (+ankle dorsiflexion/plantarflexion) Details: normal to inspection and no edema; no tenderness, no swelling and no ecchymosis and foot Details: normal capillary refill, toes with normal ROM, vascular exam Details: dorsalis pedis pulse present and motor-sensory exam Details: light-touch normal; no tenderness Objective Data Vital Signs Vital Signs: Vital Signs - 24 hr 0
[2022-12-26] MEDS: ONDANSETRON INJ 4 MG/2 ML VIAL IV PUSH (13:00)
--- NOTE | 2022-12-26 13:24 | PC.NURSE ---
On 12/26/22, the student, [Yakov Rodriguez], provided care and completed [facility] documentation on this patient. I have reviewed the student's documentation and agree with the findings.
[2022-12-26 15:33] LABS: Hematocrit 36.7 % (42.0-52.0); Hemoglobin 12.6 g/dL (14.0-18.0); Mean Corpuscular HGB Conc 34.3 g/dl (32-36); Mean Corpuscular Hemoglobin 29.6 pg (26-34); Mean Corpuscular Volume 86.4 fl (80-100); Mean Platelet Volume 9.6 fl (7.4-10.4); Platelet Count Result 253 k/mm3 (150-375); Red Blood Count 4.25 M/mm3 (4.6-6.20)
[2022-12-26 15:47] LABS: Anion Gap 9 mmol/L (8-16); Blood Urea Nitrogen 33 mg/dL (9-20); Calcium 8.1 mg/dL (8.4-10.2); Carbon Dioxide 22 mmol/L (22-30); Chloride 101 mmol/L (98-107); Estimated CRCL calculation 69 ml/min; Estimated Glomerular Filt Rate > 60; Glucose 120 mg/dL (65-110); Magnesium 1.8 mg/dL (1.6-2.3); Potassium 4.4 mmol/L (3.4-5.0); Sodium 132 mmol/L (137-145)
--- NOTE | 2022-12-26 17:29 | ECG_ITS ---
Measurements Intervals [place] Rate: 89 P: 37 MD: 224 QRS: -53 QRSD: 106 T: 42 QT: 359 QTc: 438 Interpretive Statements SINUS RHYTHM WITH FIRST DEGREE AV BLOCK LEFT ANTERIOR SUPERIOR HEMIBLOCK ABNORMAL ECG COMPARED TO ECG 12/11/2022 08:26:13 HEART RATE INCREASED NO OTHER SIGNIFICANT CHANGE Electronically Signed On 12-27-2022 7:45:48 CDT by Allan Valentin M.D.
--- NOTE | 2022-12-26 18:00 | WPDCN ---
Assessment and Plan Assessment and plan (1) Syncope: Code(s): R55 - Syncope and collapse Status: Acute Assessment and Plan: Most likely secondary to orthostatic hypotension. He felt dizzy when going from supine to sitting and he had a syncopal episode within 20 to 30 seconds of standing. Orthostatic vital signs were positive this evening. By history and labs he does look a bit dehydrated and he will be hydrated overnight. Antihypertensives on hold for now. He will be monitor on telemetry to rule cardiac dysrhythmia. EKG and echocardiogram have been ordered for further evaluation. (2) Acute blood loss anemia: Code(s): D62 - Acute posthemorrhagic anemia Status: Acute Assessment and Plan: Hemoglobin has dropped 2.5 g to 12.6 this afternoon. Repeat in a.m.. (3) Postoperative urinary retention: Code(s): N99.89 - Other postprocedural complications and disorders of genitourinary system; R33.8 - Other retention of urine Status: Acute Assessment and Plan: Patient catheterized a couple of times today but now seems be emptying his bladder. He does a history of nocturia and likely has an enlarged prostate and would benefit tamsulosin however will hold on that for now due to orthostatic hypotension. Continue p.r.n. bladder scan. (4) Hypertension: Code(s): I10 - Essential (primary) hypertension Status: Acute Assessment and Plan: Antihypertensives on hold due to orthostatic hypotension as above. (5) Hypothyroidism: Code(s): E03.9 - Hypothyroidism, unspecified Status: Acute Assessment and Plan: Continue levothyroxine and check TSH. Plan Thank you for allowing us to participate in this patient's care. Please do not hesitate to contact us with any questions. HPI Data of Consult Date/Time: 12/26/22 18:00 Requesting Physician: Edis Sahni MD Consult Narrative Reason for consult: Syncope. Narrative: This is a very pleasant 67-year-old male with hypertension, hypothyroidism, iron deficiency anemia, and degenerative joint disease whom the hospitalist service has been consulted following a syncopal episode which occurred just after midnight. He had an elective right total hip arthroplasty done yesterday and it looks like the surgery went without issue. Postoperatively he had some nausea and admits that he was unable to eat much yesterday. Just after midnight he had to use the restroom and when attack sat him up to the side of the bed the patient reported feeling a bit dizzy. He sat there for a minute or so before trying to stand up and within 20 or 30 seconds after standing he reported that he felt like he was going to pass out. He was sat back down in bed at which time his head slumped and he became unresponsive. Tech called a rapid response as the patient appeared to be having agonal respirations. Initially staff were unable to palpate a carotid pulse however he came to shortly thereafter. Blood pressures taken within 10 minutes thereafter were well within normal limits. This evening however he did have positive orthostatic vital signs in again he really has not had that great of oral intake. He did receive his beta-julián and thiazide diuretic today but not his RUTHY-inhibitor. At the time my evaluation I witnessed him ambulating to the restroom with a walker and the aid of a tech, and he did quite well with that and was not feeling lightheaded or dizzy. He was also able to void this evening and it is noted that he was having some difficulties the last 24 hours emptying his bladder and he had to be straight catheterized on a couple of occasions. He has not had chest pain, pleuritic pain, palpitations, or sensations of racing heart. No known history of cardiac disease or cardiac dysrhythmia. Pain is pretty well controlled, worse when out moving. Review of Systems Review of Systems: Twelve systems were reviewed. He has a history of syncope sever
--- NOTE | 2022-12-26 19:28 | PC.NURSE ---
On 12/26/22, the Licensed pending RN, Phoebe Arteaga, provided care and completed [facility] documentation on this patient. I have reviewed the License pending RN's documentation and agree with the findings.
[2022-12-26] MEDS: SODIUM CHLORIDE 0.9% IV 1,000 ML 100 ML IV CONT (22:48)
[2022-12-27] VITALS (11 sets, daily range): BP systolic 104–135; BP diastolic 54–84; PULSE 68–93; RESP 16–18; TEMP 36.6–37.1; O2SAT 97–100
[2022-12-27] MEDS: HYDROcodone/acetaminophen (*CRX) 7.5-325 MG TABLET 1 TAB PO ×2 (00:49→09:35)
[2022-12-27 06:00] LABS: Hematocrit 32.9 % (42.0-52.0); Hemoglobin 11.2 g/dL (14.0-18.0); Mean Corpuscular Volume 88.2 fl (80-100); Platelet Count Result 196 k/mm3 (150-375); Red Blood Count 3.73 M/mm3 (4.6-6.20); Red Cell Distribution Width 13.1 % (11.5-14.5); White Blood Count 6.2 K/mm3 (4.5-10.0)
[2022-12-27 06:06] LABS: Anion Gap 5 mmol/L (8-16); Blood Urea Nitrogen 26 mg/dL (9-20); Calcium 7.9 mg/dL (8.4-10.2); Carbon Dioxide 28 mmol/L (22-30); Chloride 104 mmol/L (98-107); Estimated CRCL calculation 78 ml/min; Estimated Glomerular Filt Rate > 60; Glucose 112 mg/dL (65-110); Magnesium 2.1 mg/dL (1.6-2.3); Potassium 4.2 mmol/L (3.4-5.0); Sodium 137 mmol/L (137-145)
[2022-12-27] MEDS: LEVOTHYROXINE SODIUM 50 MCG TABLET PO (07:45)
[2022-12-27] MEDS: ASPIRIN 325 MG ENTERIC TABLET PO (09:27)
[2022-12-27] MEDS: ASCORBIC ACID 500 MG TABLET 1000 MG PO (09:27)
[2022-12-27] MEDS: carvediloL 6.25 MG TABLET PO (09:27)
[2022-12-27] MEDS: allopurinoL 100 MG TABLET PO (09:27)
[2022-12-27] MEDS: CHOLECALCIFEROL 1,000 UNITS TABLET 5000 UNITS PO (09:28)
[2022-12-27] MEDS: FAMOTIDINE 20 MG TABLET PO (09:29)
[2022-12-27] MEDS: polyethylene glycoL 3350 17 GM POWD.PACK PO (09:33)
[2022-12-27] MEDS: SENNA/DOCUSATE SODIUM TABLET 2 TAB PO (09:33)
--- NOTE | 2022-12-27 09:57 | PM.PNORT ---
Progress Note: A&P Assessment and Plan (1) S/P total hip arthroplasty: Code(s): Z96.649 - Presence of unspecified artificial hip joint Status: Acute Assessment and Plan: POD #2: Right JAYME Continue PT/OT. WBAT. Walker. HIGH FALL RISK. Continue pain control. Ice hip. Protect skin. DVT prophylaxis with aspirin. SCDs. Incentive Spirometry Use reviewed. Monitor Dressing. Change prior to discharge. Bowel Regimen. Dispo: Home with Home Health pending progress with PT/OT and medical clearance. (2) Postoperative urinary retention: Code(s): N99.89 - Other postprocedural complications and disorders of genitourinary system; R33.8 - Other retention of urine Status: Acute Assessment and Plan: Patient reports improvement in urination today. May require addition of tamsulosin per medicine team. Awaiting final recommendations. (3) Postoperative hypotension: Code(s): I95.81 - Postprocedural hypotension Status: Acute Assessment and Plan: HgB 11.2 today. BP improved. ECG ordered, unchanged from preoperative ECG aside from elevated HR. Carotid doppler reveals <50% stenosis in the right internal carotid artery and <50% stenosis in the left internal carotid artery. BP medications held by medicine team. Medicine team following. Appreciate recommendations for resuming home medications at discharge. (4) Nausea: Code(s): R11.0 - Nausea Status: Acute Assessment and Plan: Postoperative nausea resolved. Zofran sent to pharmacy for use at home if needed. Subjective Subjective Date/Time Seen: 12/27/22 09:57 Post Op day: 2 Interval history: POD #2: Right JAYME Patient reports complete resolution of nausea today. Urination is improved as well. Working with OT at time of exam, denies dizziness. No other new concerns. Hopeful for discharge home today. Review of Systems Constitutional: Constitutional: Denies chills, Denies fever(s), Denies headache(s) and Denies weakness Cardiovascular: Cardiovascular: Reports no additional cardiovascular complaints Respiratory: Respiratory: Reports no additional respiratory complaints Gastrointestinal: Gastrointestinal: Denies abdominal pain, Denies diarrhea, Denies nausea and Denies vomiting Genitourinary: Genitourinary: Reports as per HPI Musculoskeletal: Musculoskeletal: Reports as per HPI Exam Const: General: no acute distress and uncomfortable Resp: Effort & Inspection: normal respiratory effort Cardio: Rate: regular rate Rhythm: regular rhythm GI: Inspection: non-distended GI Palp: Yes Soft to palpation, No Tenderness to palpation present (GI) and No Guarding due to palpation present (GI) Skin: General skin exam: normal color Other: Incision right hip c/d/i. Surrounding tissue without redness/warmth. Mild swelling consistent with recent surgery. No drainage. Neuro: Cognition (Neuro): normal cognition Speech: normal speech Extrem: Right lower extremity: normal to inspection, normal capillary refill, hip/thigh Details: tenderness Location: of the hip (Thigh soft ) Location: laterally and anteriorly, swelling Location: at the hip, abnormal ROM (limited consistent with recent surgery ) Details: pain with active ROM during and pain with passive ROM during and other (Incision c/d/i. ); no deformity and no unusual warmth, knee Details: normal to inspection; no tenderness and no swelling, lower leg (Negative Adrian's Sign ) Details: normal to inspection and no edema; no tenderness, ankle (+ankle dorsiflexion/plantarflexion) Details: normal to inspection and no edema; no tenderness, no swelling and no ecchymosis and foot Details: normal capillary refill, toes with normal ROM, vascular exam Details: dorsalis pedis pulse present and motor-sensory exam Details: light-touch normal; no tenderness Objective Data Vital Signs Vital Signs: Vital Signs - 24 hr 12/26/22 11:56 12/26/22 12:00 12/26/22 11:55 Temperature Pu
--- NOTE | 2022-12-27 11:23 | PM.IMPN ---
Progress Note: A&P Assessment and Plan (1) Syncope: Code(s): R55 - Syncope and collapse Status: Acute Assessment and Plan: Workup unrevealing Echo pending. Patient reports he feels back to his baseline. Okay with discharge (2) Acute blood loss anemia: Code(s): D62 - Acute posthemorrhagic anemia Status: Acute Assessment and Plan: Monitor (3) Postoperative urinary retention: Code(s): N99.89 - Other postprocedural complications and disorders of genitourinary system; R33.8 - Other retention of urine Status: Acute Assessment and Plan: tamsulosin on discharge. (4) Hypertension: Code(s): I10 - Essential (primary) hypertension Status: Acute Assessment and Plan: Blood pressure is improved. (5) Hypothyroidism: Code(s): E03.9 - Hypothyroidism, unspecified Status: Acute Assessment and Plan: Continue levothyroxine and check TSH. Plan Thank you for allowing us to participate in this patient's care. Please do not hesitate to contact us with any questions. Subjective Date/time seen: 12/27/22 11:23 No new complaints Exam Narrative: General: Well-developed, nontoxic-appearing male sitting up in bed in no acute distress. Weight: 106.2 kg. BMI: 33.6. HEENT: Normocephalic, atraumatic. PERRL, EOMI. Sclera anicteric. Tacky mucous membranes. Neck: Supple. No carotid bruits. Respiratory: Lungs are clear to auscultation bilaterally. Cardiovascular: Regular rate and rhythm with S1-S2. Gastrointestinal: Abdomen is soft, nontender, and nondistended with positive bowel sounds. Skin: Warm and dry. No rash or lesions on limited exam. Extremities: No cyanosis, clubbing, or edema. Radial and pedal pulses intact. Musculoskeletal: Right hip dressing is clean, dry, and intact. Neurological: Alert. Cranial nerves 2-12 are grossly intact. No gross focal deficits to casual conversation. Psychiatric: Pleasant and cooperative with normal mood and affect. Judgment and insight intact. Objective Data Vital Signs Vital Signs: Vital Signs - 24 hr 12/26/22 11:56 12/26/22 12:00 12/26/22 11:55 Temperature Pulse Rate 91 93 Respiratory Rate Blood Pressure Pulse Oximetry Oxygen Delivery Room Air 12/26/22 13:55 12/26/22 13:55 12/26/22 16:00 Temperature 98.5 F Pulse Rate 94 85 Respiratory Rate 16 Blood Pressure 127/64 Pulse Oximetry 99 Oxygen Delivery Room Air 12/26/22 18:20 12/26/22 19:43 12/26/22 20:00 Temperature 98.7 F 98.7 F Pulse Rate 98 98 98 Respiratory Rate 16 16 Blood Pressure 128/57 L 128/57 L Pulse Oximetry 98 98 Oxygen Delivery 12/26/22 20:00 12/26/22 22:22 12/26/22 22:22 Temperature 97.8 F Pulse Rate 98 86 Respiratory Rate 16 16 Blood Pressure 130/64 130/64 Pulse Oximetry 98 97 Oxygen Delivery Room Air 12/26/22 22:29 12/26/22 22:34 12/26/22 20:00 Temperature Pulse Rate 88 Respiratory Rate Blood Pressure 112/61 99/52 L Pulse Oximetry Oxygen Delivery 12/27/22 00:00 12/27/22 00:53 12/27/22 04:34 Temperature 98.4 F 97.8 F Pulse Rate 79 85 73 Respiratory Rate 16 16 Blood Pressure 117/65 135/84 Pulse Oximetry 97 100 Oxygen Delivery 12/27/22 04:00 12/27/22 08:00 12/27/22 09:39 Temperature 98.7 F Pulse Rate 68 88 88 Respiratory Rate 16 Blood Pressure 124/54 L Pulse Oximetry 97 Oxygen Delivery 12/27/22 09:27 12/27/22 09:22 Temperature Pulse Rate 87 Respiratory Rate Blood Pressure Pulse Oximetry Oxygen Delivery Room Air Intake/Output Intake/Output: Intake & Output 12/24/22 12/25/22 12/26/22 12/27/22 23:59 23:59 23:59 23:59 Intake Total 900 4320 240 Output Total 1650 325 Balance 900 2670 -85 Meds/Results Medications: Active Medications Generic Name Dose Route Start Last Admin Trade Name Freq PRN Reason Stop Dose Admin Acetaminophen 650 mg 12/25/22
--- NOTE | 2022-12-27 11:48 | PM.PNORT ---
Progress Note: A&P Assessment and Plan (1) S/P total hip arthroplasty: Code(s): Z96.649 - Presence of unspecified artificial hip joint Status: Acute Assessment and Plan: POD 2 DOING WELL WITH NO EVIDENCE OF CAROTID STENOSIS. HE IS WALKING WELL WITH PT AND WITHOUT SYNCOPAL SYMPTOMS. HIS PAIN IS WELL CONTROLLED. HE IS TAKING GOOD PO INTAKE. OK TO DC HOME HE WILL F/U IN 3 WEEKS. RECOMMENDATIONS PER MEDICINE NOTED AND WILL HOLD HTN MEDS AND HE WILL F/U WITH HIS PRIMARY MD FOR FURTHER RECOMMENDATIONS. Subjective Subjective Date/Time Seen: 12/27/22 11:48 POD 2 DOING WELL. NO SYNCOPE AND NO CHEST PAIN OR SOB. WALKING WELL WITH PT. HE IS VOIDING ON HIS OWN. NO CALF PAIN Exam Extrem: Other: VSS AFEBRILE DRESSING DRY NV INTACT NEG HOMANS SIGN, CALF SOFT NON TENDER, THIGH SOFT NON TENDER Objective Data Vital Signs Vital Signs: Vital Signs - 24 hr 12/26/22 11:56 12/26/22 12:00 12/26/22 11:55 Temperature Pulse Rate 91 93 Respiratory Rate Blood Pressure Pulse Oximetry Oxygen Delivery Room Air 12/26/22 13:55 12/26/22 13:55 12/26/22 16:00 Temperature 36.9 C Pulse Rate 94 85 Respiratory Rate 16 Blood Pressure 127/64 Pulse Oximetry 99 Oxygen Delivery Room Air 12/26/22 18:20 12/26/22 19:43 12/26/22 20:00 Temperature 37.1 C 37.1 C Pulse Rate 98 98 98 Respiratory Rate 16 16 Blood Pressure 128/57 L 128/57 L Pulse Oximetry 98 98 Oxygen Delivery 12/26/22 20:00 12/26/22 22:22 12/26/22 22:22 Temperature 36.6 C Pulse Rate 98 86 Respiratory Rate 16 16 Blood Pressure 130/64 130/64 Pulse Oximetry 98 97 Oxygen Delivery Room Air 12/26/22 22:29 12/26/22 22:34 12/26/22 20:00 Temperature Pulse Rate 88 Respiratory Rate Blood Pressure 112/61 99/52 L Pulse Oximetry Oxygen Delivery 12/27/22 00:00 12/27/22 00:53 12/27/22 04:34 Temperature 36.9 C 36.6 C Pulse Rate 79 85 73 Respiratory Rate 16 16 Blood Pressure 117/65 135/84 Pulse Oximetry 97 100 Oxygen Delivery 12/27/22 04:00 12/27/22 08:00 12/27/22 09:39 Temperature 37.1 C Pulse Rate 68 88 88 Respiratory Rate 16 Blood Pressure 124/54 L Pulse Oximetry 97 Oxygen Delivery 12/27/22 09:27 12/27/22 09:22 12/27/22 08:00 Temperature Pulse Rate 87 Respiratory Rate Blood Pressure 123/59 L Pulse Oximetry Oxygen Delivery Room Air 12/27/22 08:02 12/27/22 08:04 Temperature Pulse Rate Respiratory Rate Blood Pressure 119/67 104/57 L Pulse Oximetry Oxygen Delivery Intake/Output Intake/Output: Intake & Output 12/24/22 12/25/22 12/26/22 12/27/22 23:59 23:59 23:59 23:59 Intake Total 900 4320 240 Output Total 1650 325 Balance 900 2670 -85 Meds/Results Medications: Active Medications Generic Name Dose Route Start Last Admin Trade Name Freq PRN Reason Stop Dose Admin Acetaminophen 650 mg 12/25/22 17:52 Acetaminophen 325 Mg Tablet PO Q6H PRN Mild Pain (1-3) or Fever Hydrocodone Bitart/Acetaminophen 1 tab 12/25/22 17:52 12/27/22 09:35 Hydrocodone/Acetaminophen (*Crx) 7.5-325 Mg Tablet PO 1 tab Q3H PRN Administration Pain Rated 4-6 Hydrocodone Bitart/Acetaminophen 2 tab 12/25/22 17:52 Hydrocodone/Acetaminophen (*Crx) 7.5-325 Mg Tablet PO Q6H PRN Pain Rated 7-10 Allopurinol 100 mg 12/26/22 09:00 12/27/22 09:27 Allopurinol 100 Mg Tablet PO 100 mg DAILY KAMILLE Administration Ascorbic Acid 1,000 mg 12/26/22 09:00 12/27/22 09:27 Ascorbic Acid 500 Mg Tablet PO 01/25/23 08:59 1,000 mg DAILY KAMILLE Administration Aspirin 325 mg 12/26/22 09:00 12/27/22 09:27 Aspirin 325 Mg Enteric Tablet PO 325 mg Q12HR KAMILLE Administration Benzocaine 1 lozenge 12/26/22 03:40 12/26/22 04:37 Benzocaine/Menthol (*Bkc) 18 Ea Lozenge PO 1 lozenge PRN PRN Administration Sore Throat Carvedilol 6.25 mg 12/25/22 17:52 12/27/22 09:27 Carvedilol 6
--- NOTE | 2022-12-27 11:49 | PC.NURSE ---
On 12/27/22, the student, [Portillo Simon], provided care and completed [facility] documentation on this patient. I have reviewed the student's documentation and agree with the findings.
--- NOTE | 2022-12-27 11:52 | PM.DS ---
DS: Admitting Diagnosis Discharge Date 12/27/22 Admitting Diagnosis Right JAYME DS: Discharge Diagnosis Discharge Diagnosis (1) S/P total hip arthroplasty: Code(s): Z96.649 - Presence of unspecified artificial hip joint Status: Acute Assessment and Plan: POD #2: Right JAYME Continue PT/OT. WBAT. Walker. HIGH FALL RISK. Continue pain control. Ice hip. Protect skin. DVT prophylaxis with aspirin. SCDs. Incentive Spirometry Use reviewed. Monitor Dressing. Change prior to discharge. Bowel Regimen. Dispo: Home with Home Health pending progress with PT/OT and medical clearance. (2) Postoperative urinary retention: Code(s): N99.89 - Other postprocedural complications and disorders of genitourinary system; R33.8 - Other retention of urine Status: Acute Assessment and Plan: Patient reports improvement in urination today. Starting tamsulosin at discharge per medicine team. Medication sent to pharmacy. (3) Postoperative hypotension: Code(s): I95.81 - Postprocedural hypotension Status: Acute Assessment and Plan: HgB 11.2 today. BP improved. ECG ordered, unchanged from preoperative ECG aside from elevated HR. Carotid doppler reveals <50% stenosis in the right internal carotid artery and <50% stenosis in the left internal carotid artery. BP medications held by medicine team. Okay to continue carvedilol post op but d/c Lisonpril-HCTZ. Patient to follow up with PCP in 1 week for reevaluation. Resuming Lisinopril-HCTZ by PCP. (4) Nausea: Code(s): R11.0 - Nausea Status: Acute Assessment and Plan: Postoperative nausea resolved. Zofran sent to pharmacy for use at home if needed. DS: Summary Hospital Course Reason for hospitalization: Right JAYME Hospital Course: 67 year old male admitted s/p Right JAYME for postoperative medical management, pain control and mobilization with PT/OT. Patient progressed well with PT/OT. Patient had difficulty with postoperative urinary retention, hypotension and nausea. He had a syncopal event on POD #0. Medicine team consulted for assistance with postoperative care. HgB remains stable. Improvement in postoperative urinary retention on POD #2, start Tamsulosin at d/c. Improvement in nausea and hypotension on POD #2. Medicine team recommends holding lisinopril-HCTZ at discharge. Follow up with PCP in 1-2 weeks to reevaluate need to resume. The patient has been cleared to be discharged home with home health at this time by orthopedics, PT/OT and medicine team. All discharge care instructions reviewed at depth. New medications reviewed. Follow up planned for 3 weeks in the outpatient orthopedic clinic with Dr. Sahni. Status at Discharge Functional status at discharge: uses cane/walker Overall status at discharge: patient is progressing back to baseline Time Spent with Patient Time attestation: Total time spent providing and/or coordinating discharge services: Exam Const: General: no acute distress and uncomfortable Resp: Effort & Inspection: normal respiratory effort Cardio: Rate: regular rate Rhythm: regular rhythm GI: Inspection: non-distended Skin: General skin exam: normal color Other: Incision right hip c/d/i. Surrounding tissue without redness/warmth. Mild swelling consistent with recent surgery. No drainage. Neuro: Cognition (Neuro): normal cognition Speech: normal speech Extrem: Right lower extremity: normal to inspection, normal capillary refill, hip/thigh Details: tenderness Location: of the hip (Thigh soft ) Location: laterally and anteriorly, swelling Location: at the hip, abnormal ROM (limited consistent with recent surgery ) Details: pain with active ROM during and pain with passive ROM during and other (Incision c/d/i. ); no deformity and no unusual warmth, knee Details: normal to inspection; no tenderness and no swelling, lower leg (Negative Adrian's Sign ) Details: normal to inspection and no edema; no tenderness, a
--- NOTE | 2022-12-27 12:45 | PC.NURSE ---
On 12/27/22, the student, [[place] Mixon ], provided care and completed [facility] documentation on this patient. I have reviewed the student's documentation and agree with the findings.
--- NOTE | 2022-12-27 23:40 | ECHO_ITS ---
Patient Info Name: Richard Clark Age: 67 years : 1955 Gender: Male Ht: 70 in Wt: 234 lbs BSA: 2.32 m2 HR: 73 bpm BP: 135 / 84 mmHg Heart Rhythm: Sinus Rhythm Technical Quality: Fair Exam Date: 12/27/2022 10:22 AM Exam Location: [facility] Patient Status: Outpatient Admit Date: 12/26/2022 Staff Ordering Physician: Loli Cohen PA-C Station Cleaning Porter: Yadira Gonsalves RDCS Attending Provider: Edis Sahni MD Referring Physician: Vicki VOGT; Exam Type: CA echo doppler color flow Study Info Indications R55 - Syncope and collapse Complete two-dimensional, color flow and Doppler transthoracic echocardiogram is performed. Summary 1. Complete two-dimensional, color flow and Doppler transthoracic echocardiogram is performed. 2. Left ventricular chamber dimension is normal. 3. Left ventricular systolic function is normal, estimated at 60-65%. 4. The left ventricular diastolic function is grade I diastolic dysfunction. 5. E/e' 7 is not elevated. 6. There is mild aortic valve sclerosis. 7. No pulmonary hypertension, estimated pulmonary arterial systolic pressure is 21 mmHg. Left Ventricle E/e' 7 is not elevated. Left ventricular chamber dimension is normal. Left ventricular systolic function is normal, estimated at 60-65%. The left ventricular diastolic function is grade I diastolic dysfunction. Right Ventricle Right ventricular systolic function is normal and with normal TAPSE 2.5 cm. Right ventricular chamber dimension is normal. Left Atria Left atrial chamber dimension is normal. Right Atria Right atrial chamber dimension is normal. Aortic Valve The aortic valve is trileaflet. There is mild aortic valve sclerosis. There is no aortic valve stenosis. There is no aortic valve regurgitation. Pulmonic Valve There is no pulmonic regurgitation. Mitral Valve There is no mitral valve stenosis. There is no mitral valve regurgitation. Tricuspid Valve There is no tricuspid valve regurgitation. No pulmonary hypertension, estimated pulmonary arterial systolic pressure is 21 mmHg. Pericardium/Pleural There is no pericardial effusion. Inferior Vena Cava Normal inferior vena cava with >50% collapse upon inspiration consistent with normal right atrial pressure, 5 mmHg. Aorta The aortic root size at the sinus of Valsalva is normal. Left Ventricular Outflow Tract Name Value Normal LVOT 2D LVOT Diameter 2.0 cm LVOT Doppler LVOT Peak Gradient 6 mmHg LVOT Mean Gradient 3 mmHg LVOT VTI 20 cm LVOT VTI/AV VTI Ratio 0.7 LVOT Stroke Volume 62 ml LVOT CO 5.4 l/min LVOT CI 2.3 l/min/m2 Pulmonic Valve Name Value Normal RVOT Doppler
== END 2022-12-27 15:16 | disposition home health service (06) ==
LOC: ANHSURGERY 14:31 → ANH2MED 14:31
PROVIDERS: Physician Assistant; Admitting Provider Orthopaedic Surgery; PCP Family Medicine; Visit Provider Orthopaedic Surgery
PROC: (CPT 27130; principal; 2022-12-25 11:00)
DX: M16.11 Unilateral primary osteoarthritis, right hip (principal); I10 Essential (primary) hypertension; E29.1 Testicular hypofunction; R94.31 Abnormal electrocardiogram [ECG] [EKG]; E66.9 Obesity, unspecified; N99.89 Other postprocedural complications and disorders of genitourinary system; R33.0 Drug induced retention of urine; D62 Acute posthemorrhagic anemia; I95.81 Postprocedural hypotension; R55 Syncope and collapse; R11.0 Nausea; R63.0 Anorexia; Z79.82 Long term (current) use of aspirin; Z79.1 Long term (current) use of non-steroidal anti-inflammatories (NSAID); Z79.899 Other long term (current) drug therapy; Z82.49 Family history of ischemic heart disease and other diseases of the circulatory system
CPT/HCPCS: 27130; 36415; 73501; 80048; 80307; 81003; 83735; 84443; 85025; 85027; 85610; 85730; 86850; 86900; 86901; 87081; 93005; 93306; 93880; 97110; 97116; 97161; 97165; 97530; 97535; A9270; C1776; G0378; J0171; J0690; J1170; J1885; J2250; J2270; J2405; J2795; J3010; J7030; J7120

== ENCOUNTER 2023-03-19 09:00 | Outpatient (RCR) | payer MEDICARE, SELFPAY ==
--- NOTE | 2023-01-22 09:39 | PTOPEVAL1 ---
Assessment and note entered by Amy Trejo DPT Evaluation Information Assessment Status Evaluation Subjective Information Pt is s/p R JAYME on 12/25/22. Pt has had home health therapy since then which finished about 1.5 weeks ago. Pt is currently using a cane or a walker at home. Highest pain 1/10 and lowest 0/10. States he has to be careful getting around at home. Has 1 or 2 steps to get into house depending on location . Using both feet on each step. Has not yet returned to riding a motorcycle or yard work. Has not been bending over like to reach into a cabinet or to adjust his shoes. Returns to MD late February. Pt is retired. Patient goal: ride a motorcycle again, get into his mustang again, walk normally again. Reported Pain Level Pain Score 1: Self Report Assessment PT Clinical Summary The patient is presenting to skilled therapy s/p R [facility] approximately 4 weeks ago. He presents with decreased range of motion, and gait, balance, and stair impairments which are contributing to his pain and difficulty returning to all typical activities. He reports an inability to do yard work and has not been bending down into cabinets or adjusting his shoe. He will benefit from therapy to address these impairments and safely return to prior level of function. Plan of Care Interventions Electrical Stimulation,Gait Training,Hot Pack/Cold Pack,Manual Therapy,Neuro Re-education,Patient/ Caregiver Education,Therapeutic Activities, Therapeutic Exercise,Self-Care/Home Management PT Services Indicated Yes Treatment Frequency and 2 times a week for 4 weeks Duration These treatments will address the objective and functional deficits as defined above. The patient will be advanced safely and appropriately in order for the patient to progress towards his/her prior level of function. Additional exercises will be introduced and as well as a comprehensive home exercise program upon discharge, if needed, ?to ensure carryover of functional gains achieved in the clinic. This treatment plan has been reviewed and agreement upon by the patient.
--- NOTE | 2023-02-19 10:26 | PTOPPROG ---
Assessment and note entered by Amy Trejo DPT Evaluation Information Assessment Status Progress Subjective Information Pt reports no real pain in the last week, just some soreness and stiffness still. Reports no issues at home and able to do his normal ADL's independently. Able to alternate his feet to get into his house but does not always do that. No assistive device used. Return to MD appointment got moved to mid March. Has not yet been able to get into his car that sits very low or get on his motorcycle. Assessment PT Clinical Summary The patient has made good progress in therapy overall. He reports no real pain, just stiffness and soreness at times. He has been able to return to ADL's and is no longer using an assistive device. He demonstrates improved range of motion, balance, and gait. He displays minor weakness in his right LE compared to his left and has not yet been able to do all car transfers and will benefit from further therapy to improve strength and return to prior level. Plan of Care Interventions Electrical Stimulation,Gait Training,Hot Pack/Cold Pack,Manual Therapy,Neuro Re-education,Patient/ Caregiver Education,Therapeutic Activities, Therapeutic Exercise PT Services Indicated Yes Treatment Frequency and 1 time a week for 4 weeks Duration These treatments will address the objective and functional deficits as defined above. The patient will be advanced safely and appropriately in order for the patient to progress towards his/her prior level of function. Additional exercises will be introduced and as well as a comprehensive home exercise program upon discharge, if needed, ?to ensure carryover of functional gains achieved in the clinic. This treatment plan has been reviewed and agreement upon by the patient.
--- NOTE | 2023-03-19 09:29 | PTOPDC ---
Assessment and note entered by Amy Trejo DPT Evaluation Information Assessment Status Discharge Subjective Information Pt reports his hip is feeling good, no real pain in the last week outside the occasional tweak . Has been able to do his typical activities at home . Returns to MD in approximately 2 weeks. Reported Pain Level Pain Score 0: Self Report Assessment PT Clinical Summary The patient has made good progress in therapy and has been able to return to all activities without any real hip pain. He demonstrates improved LE strength, improved walking distance, and improved balance. Due to progress, plan for discharge at this time pending follow up with MD in approximately 2 weeks. He has been educated in a thorough HEP and to contact PT as needed. Plan of Care PT Services Indicated No
--- NOTE | 2023-04-17 08:06 | PTOPDC ---
Assessment and note entered by Amy Trejo DPT Evaluation Information Assessment Status Discharge - Pt Not Present Subjective Information Assessment PT Clinical Summary Patient is being discharged this date- he has not returned after most recent follow up with MD and has otherwise reported to be fully functional. Plan of Care PT Services Indicated No
== END 2023-04-18 15:16 | disposition home or self-care (01) ==
LOC: ANHGOSHPT 09:00
PROVIDERS: PCP Family Medicine; Visit Provider Orthopaedic Surgery
DX: Z47.1 Aftercare following joint replacement surgery (principal); Z96.641 Presence of right artificial hip joint
CPT/HCPCS: 97110; 97112; 97140; 97161; 97530

== ENCOUNTER 2025-01-12 08:11 | Emergency (ER) | payer MEDICARE, SELFPAY ==
[2025-01-12 08:18] VITALS: BP 143/73; PULSE 66; RESP 16; TEMP 36.1; O2SAT 98
--- NOTE | 2025-01-12 08:29 | ED_ITS ---
HPI - Skin/Abscess/Foreign Bdy General Chief complaint: Skin/Abscess/Foreign Body Stated complaint: Skin Problem Time Seen by Provider: 01/12/25 08:29 Source: patient Mode of arrival: ambulatory Limitations: no limitations History of Present Illness HPI narrative: 69 y/o male presented for c/o changes to a cyst on the right upper back which he has had for years. States 2 days ago it became bigger and red and painful. Has never had any issues with the site in the past. Denies drainage, n/v/d/f/c. No treatment. Scheduled with pcp in 2 days. Related Data Home Medications ?Medication ?Instructions ?Recorded ?Confirmed ?Last Taken ?Type carvedilol 6.25 mg tablet 6.25 mg PO BID 11/20/20 12/25/23 12/25/22 History lisinopril 10 10 - 12.5 tablet PO DAILY 11/20/20 12/25/23 12/24/22 History mg-hydrochlorothiazide 12.5 mg tablet ascorbic acid (vitamin C) 1,000 mg 1 g PO DAILY 09/30/22 12/25/23 12/18/22 History capsule cholecalciferol (vitamin D3) 125 125 mcg PO DAILY 09/30/22 12/25/23 12/18/22 History mcg (5,000 unit) capsule omega-3 fatty acids 1,000 mg 1,000 mg PO DAILY 09/30/22 12/25/23 12/18/22 History capsule aspirin 81 mg tablet 81 mg PO DAILY 12/11/22 12/25/23 12/11/22 History ferrous sulfate 27 mg iron tablet 27 mg PO QMWF 12/11/22 12/25/23 12/18/22 History glucosamine 750 lc-[id number]-qyc 1 tablet PO BID 12/11/22 12/25/23 12/18/22 History no1 644 mg-C 30 mg-mdoesto 1 mg tablet (Osteo Bi-Flex Triple Strength) levothyroxine 50 mcg tablet 50 mcg PO DAILY 12/11/22 12/25/23 12/25/22 History multivit,Ca,min-iron 8 mg-folic 1 tablet PO DAILY 12/11/22 12/25/23 12/18/22 History acid 200 mcg-lycopene 600 mcg tablet (Centrum Men) naproxen sodium 220 mg capsule 220 mg PO Q12H PRN Pain 12/11/22 12/25/23 12/11/22 History (Aleve) prasterone (dhea) 25 mg tablet 25 mg PO DAILY 12/11/22 12/25/23 12/18/22 History (DHEA) Allergies Allergy/AdvReac Type Severity Reaction Status Date / Time apricot Allergy Unknown HIVES Verified 01/12/25 08:20 Review of Systems Review of Systems: [facility] Past Medical History Medical History Aftercare following right hip joint replacement surgery Hypertension Hypothyroidism Low testosterone Pancreatitis (08/2012) Surgical History Surgical History History of total right hip arthroplasty (12/25/22) Family History Family History Other Cerebrovascular accident Diabetes mellitus Hypertension Social History Social History Social History: Surrogate medical decision maker: Alexandrea Clark, spouse. Code status: Full code. Smoking status: Never smoker Alcohol intake: never Substance use: never Lack of Transportation: No Lack of Food: Never True Current Housing: I Have Housing Concerned About Future Housing: No Difficulty Paying Gas/Electric Bills: No Difficulty Paying for Meds: No Currently Unemployed: No Education: Bachelor's Degree Difficulty w/ Childcare or Family Care: No Living arrangements: with family Additional living arrangements comments: Lives with spouse in [place]. Additional occupation/education comments: Retired from working in a refinery. Spiritual care concerns: No Comments At time of signature, I have reviewed and agree with nursing past medical, surgical, social and family history unless otherwise noted. Please see nursing chart for further information. There is no relevant family history pertinent to the presenting complaint Exam Narrative: GENERAL: Well-appearing EYES: conjunctivae clear, and EOMI. ENT: Mucous membranes moist. Oropharynx without edema, erythema or lesions. CHEST: Clear to auscultation. HEART: Regular rate and rhythm. SKIN: Warm, dry. Right upper back with abscess 3 cm area of erythema, center is slightly raised, firm, no fluctuance or active drainage. NEURO: Alert and oriented x3. Course Course Emergency Course: Patient is aware of diagnosis, understands and agrees to treatment plan. Anticipatory guidance given. Patient agrees to follow-up as directed and is aware of reasons to seek care at the emergency department. Portions of this record may have been created with voice recognition software Level of Care: Express Care Visit Vital Signs Vital signs: Vital Signs Temperature 96.9 F L 01/12/25 08:18 Pulse Rate 66 01/12/25 08:18 Respiratory Rate 16 01/12/25 08:18 Blood Pressure 143/73 H 01/12/25 08:18 Pulse Oximetry 98 01/12/25 08:18 Oxygen Delivery Room Air 01/12/25 08:18 Temperature 96.9 F L 01/12/25 08:18 Pulse Rate 66 01/12/25 08:18 Respiratory Rate 16 01/12/25 08:18 Blood Pressure 143/73 H 01/12/25 08:18 Pulse Oximetry 98 01/12/25 08:18 Oxygen Delivery Room Air 01/12/25 08:18 Reviewed MDM - Skin/Abscess/Foreign Bdy MDM Narrative Medical decision making narrative: Discussed physical exam findings , consistent with abscess to the right upper back. Site is for min no indication for I and D at this time. Rx antibiotics. He is scheduled with PCP in 2 days.. Advised supportive measures and signs/symptoms to go to the ER. Pt is appropriate for outpt treatment and f/u. Differential Diagnosis Differential diagnosis: Likely abscess of skin or subcutaneous tissue, viral exanthem, dermatophytosis, urticaria, herpes zoster, cellulitis, eczema, insect bites, impetigo and contact dermatitis Discharge Plan Discharge Clinical Impression: Abscess of skin or subcutaneous tissue Patient Disposition: Home Condition: Stable Instructions: Antibiotic Form, Abscess (ED) Additional Instructions: The abscess cannot be drained today. Cleanse with warm soapy water Warm compresses at least 4 times a day to the site to help expel drainage. Keep your wound covered if draining Take antibiotic as directed Tylenol and ibuprofen every 8 hours for pain as needed Follow up with your primary care physician as scheduled this week for a wound check. Go to the Emergency Department immediately if you develop any of the following symptoms: Fevers, Increased redness, pain, or swelling etc Patient Language: Citizen Of [place] Prescriptions: New doxycycline hyclate 100 mg tablet 100 mg PO BID 7 Days Qty: 14 0RF No Action ascorbic acid (vitamin C) 1,000 mg capsule 1 g PO DAILY cholecalciferol (vitamin D3) 125 mcg (5,000 unit) capsule 125 mcg PO DAILY omega-3 fatty acids 1,000 mg capsule 1,000 mg PO DAILY carvedilol 6.25 mg tablet 6.25 mg PO BID lisinopril-hydrochlorothiazide 10-12.5 mg tablet 10 - 12.5 tablet PO DAILY Centrum Men 8 mg iron- 200 mcg-600 mcg Tablet 1 tablet PO DAILY aspirin 81 mg Tablet 81 mg PO DAILY naproxen sodium [Aleve] 220 mg Capsule 220 mg PO Q12H PRN (Reason: Pain) Osteo Bi-Flex Triple Strength 750 mg-644 mg- 30 mg-1 mg Tablet 1 tablet PO BID levothyroxine 50 mcg tablet 50 mcg PO DAILY ferrous sulfate 27 mg iron Tablet 27 mg PO QMWF prasterone (dhea) [DHEA] 25 mg Tablet 25 mg PO DAILY tamsulosin 0.4 mg capsule 0.4 mg PO DAILY Qty: 30 0RF Follow-up/Referrals: Kevin Trammell MD [Primary Care Provider] - Time of Disposition: 08:38
== END 2025-01-12 08:42 | disposition home or self-care (01) ==
PROVIDERS: Emergency Provider Nurse Practitioner Family; PCP Family Medicine
DX: L02.212 Cutaneous abscess of back [any part, except buttock and flank] (principal); I10 Essential (primary) hypertension; E03.9 Hypothyroidism, unspecified; Z96.641 Presence of right artificial hip joint
CPT/HCPCS: 99213; G0463